=== PATIENT | female | born 1970 | race African-American/Black ===

== ENCOUNTER 2020-09-01 13:06 | Emergency (ER) | payer OTHER ==
[~2020-09-01] VITALS: Ht 172.7 cm; Wt 109.8 kg
[2020-09-01] MEDS ORDERED: ADVAIR 250-501 EACH INH (13:12)
[2020-09-01 13:29] LABS: URINE BILIRUBIN NEGATIVE (Negative); URINE BLOOD NEGATIVE (Negative); URINE CLARITY CLEAR; URINE COLOR YELLOW; URINE GLUCOSE-RANDOM* NEGATIVE (Negative); URINE KETONES NEGATIVE (Negative); URINE LEUKOCYTES-REFLEX NEGATIVE (Negative); URINE NITRITE-REFLEX NEGATIVE (Negative); URINE PROTEIN (DIPSTICK) NEGATIVE (Negative); URINE SPECIFIC GRAVITY <= 1.005 (1.005-1.035); URINE UROBILINOGEN 0.2 E.U./dl (0.2-1.0)
[2020-09-01 13:48] LABS: BASOPHILS 0.5 % (0.0-2.0); EOSINOPHILS 2.9 % (0.0-3.0); HEMATOCRIT 43.2 % (37.0-47.0); HEMOGLOBIN 13.9 gm/dL (12.0-15.0); LYMPHOCYTES 39.7 % (24.0-44.0); MCH 26.6 pg (26.0-34.0); MCHC 32.2 g/dL (28.0-37.0); MCV 82.5 fL (80.0-100.0); MONOCYTES 10.7 % (1.0-8.0); PLATELET COUNT 206 thou/uL (150-400); POLYS 46.2 % (36.0-66.0); RBC 5.24 mil/uL (4.20-5.00); RDW 14.6 % (10.5-14.5); WBC 4.3 thou/uL (4.0-11.0)
[2020-09-01 13:57] LABS: CALCIUM 8.9 mg/dL (8.5-10.1); CREATININE 1.3 mg/dL (0.6-1.0); POTASSIUM 3.6 mmol/L (3.5-5.1)
[2020-09-01 14:02] LABS: ALBUMIN 3.5 g/dL (3.4-5.0); TOTAL BILIRUBIN 0.4 mg/dL (0.2-1.0); TOTAL PROTEIN 7.5 g/dL (6.4-8.2)
[2020-09-01] MEDS ORDERED: HYDROCHLOROTHIA25 M2 PO (14:30)
[2020-09-01 14:52] VITALS: BP 163/96
--- NOTE | 2020-09-05 08:20 | EKG ---
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: [facility] : 1970 Requested By: Millie Mojica Order Number: [id number] MD: Russ Juárez Measurements Intervals [place] Rate: 77 P: 51 SD: 210 QRS: 10 QRSD: 87 T: 13 QT: 377 QTc: 427 Interpretive Statements Sinus rhythm Prolonged [place] interval Abnormal inferior Q waves Poor R wave progression Baseline wander in lead(s) III,V2 No previous ECG available for comparison Electronically Signed On 09-05-2020 8:19:47 PSYCHOLOGICAL SCIENCE PROFESSOR by Russ Juárez [email or web address] <ELECTRONICALLY SIGNED> By: Russ Juárez MD, FAC 09/05/20 0819 1348 1348 Russ Juárez MD, [facility] /EPI
== END 2020-09-01 14:55 | disposition home or self-care (01) ==
LOC: ER 13:06
PROVIDERS: Physician Assistant
DX: I10 Essential (primary) hypertension (principal); R42 Dizziness and giddiness; R30.9 Painful micturition, unspecified; J45.909 Unspecified asthma, uncomplicated; Z79.899 Other long term (current) drug therapy; Z91.018 Allergy to other foods; Z88.0 Allergy status to penicillin

== ENCOUNTER 2020-12-18 06:16 | Emergency (ER) | payer OTHER ==
[~2020-12-18] VITALS: Ht 172.7 cm; Wt 112.3 kg
[~2020-12-18 06:16] MED LIST: ADVAIR 250-501 EACH INH; HYDROCHLOROTHIA25 M2 PO
[2020-12-18] MEDS ORDERED: IBUPROFEN200 M1 (06:25)
[2020-12-18 06:49] LABS: ABSOLUTE NEUTROPHILS 2.4 thou/uL (1.4-8.2); EOSINOPHILS 4.9 % (0.0-3.0); HEMATOCRIT 43.2 % (37.0-47.0); LYMPHOCYTES 47.4 % (24.0-44.0); MCH 26.1 pg (26.0-34.0); MCHC 32.3 g/dL (28.0-37.0); MCV 80.6 fL (80.0-100.0); MONOCYTES 10.5 % (1.0-8.0); POLYS 36.2 % (36.0-66.0); RBC 5.36 mil/uL (4.20-5.00); RDW 14.4 % (10.5-14.5); WBC 6.5 thou/uL (4.0-11.0)
[2020-12-18 06:59] LABS: ANION GAP 9 mmol/L (7-16); BUN 13 mg/dL (7-18); CALCIUM 8.9 mg/dL (8.5-10.1); CHLORIDE 101 mmol/L (98-107); CO2 27 mmol/L (21-32); CREATININE 1.4 mg/dL (0.6-1.0); GLUCOSE 97 mg/dL (74-106); POTASSIUM 3.3 mmol/L (3.5-5.1); SODIUM 137 mmol/L (136-145)
[2020-12-18 07:07] LABS: TROPONIN-I <0.06 ng/mL (<0.06)
[2020-12-18 07:42] LABS: PLATELET COUNT 234 thou/uL (150-400)
[2020-12-18 09:32] VITALS: BP 129/88
--- NOTE | 2020-12-19 14:54 | EKG ---
[place] [address] [facility] [place] [address] ELECTROCARDIOGRAM REPORT Name: PAULETTE PEREZ Room #: [facility] [place]#: [id number] Admission: 12/18/20 Attend Phys: Discharge: 12/18/20 Date of : 72 Report #: [id number] [facility] ED Test Date: 2020-12-18 Test Time: 06:20:53 Pat Name: PAULETTE PEREZ Department: Room: Gender: [employer]: ronny : 1970 Requested By: Genesis Viveros Order Number: [id number] MD: Alexander Frye Measurements Intervals [place] Rate: 80 P: 49 [place]: 211 QRS: -2 QRSD: 91 T: 9 QT: 385 QTc: 445 Interpretive Statements Sinus rhythm Prolonged [place] interval Probable left atrial enlargement Consider inferior infarct Probable anterior infarct, old Compared to ECG 09/01/2020 13:48:26 Electronically Signed On 12-19-2020 14:53:55 CDT by Alexander Frye [email or web address] <ELECTRONICALLY SIGNED> By: Alexander Frye MD 12/19/20 1453 D: 03/619 9 Alexander Frye MD /[facility]
== END 2020-12-18 09:32 | disposition home or self-care (01) ==
LOC: ER 06:16
PROVIDERS: Emergency Medicine
DX: R07.9 Chest pain, unspecified (principal); Z79.899 Other long term (current) drug therapy; Z88.0 Allergy status to penicillin; Z91.018 Allergy to other foods